=== PATIENT | female | born 1975 | race Two or more races ===

== ENCOUNTER 2022-08-25 09:14 | Outpatient (CLI) | payer OTHER | END 2022-08-25 09:19 | disposition home or self-care (01) | LOC: SONOGRAMA 09:14 | PROVIDERS: ATTEND Pathology Anatomic Pathology & Clinical Pathology | DX: E04.2 Nontoxic multinodular goiter (principal); D34 Benign neoplasm of thyroid gland; E06.3 Autoimmune thyroiditis ==